=== PATIENT | female | born 1985 | race Caucasian/White ===

== ENCOUNTER → 2016-09-13 | Outpatient (CLI) | payer BC | LOC: LAB 09:27 | DX: L70.9 Acne, unspecified (principal) | CPT/HCPCS: 80076; 82465; 84478 ==

== ENCOUNTER → 2020-09-25 | Outpatient (CLI) | payer BC, OTHER ==
[~2020-09-25] MED LIST: DEBROX15 ML AU; ELIQUIS2.5 MG PO; IBUPROFEN800 MG PO; KEFLEX CAP 500500 MG PO; ZOFRAN4 MG PO
== END ==
LOC: EMI 16:29
DX: G43.709 Chronic migraine without aura, not intractable, without status migrainosus (principal); H53.9 Unspecified visual disturbance
CPT/HCPCS: 70551

== ENCOUNTER → 2021-04-24 | Outpatient (CLI) | payer BC ==
[2021-04-24 09:42] LABS: HEMOGLOBIN 12.3 gm/dl (12.3-15.3); RED BLOOD COUNT 4.4 M/UL (4.00-5.10); WHITE BLOOD COUNT 5.4 K/UL (4.5-11.0)
[2021-04-24 10:03] LABS: BUN/CREATININE RATIO 15 (0-10)
[2021-04-25 08:14] LABS: RHEUMATOID ARTHRITIS FACTOR <10.0 IU/mL (0.0-13.9); VITAMIN D, 25-HYDROXY 25.9 ng/mL (30.0-100.0)
== END ==
LOC: LAB 09:06
PROVIDERS: Nurse Practitioner Family
DX: E55.9 Vitamin D deficiency, unspecified (principal); D89.9 Disorder involving the immune mechanism, unspecified; M25.50 Pain in unspecified joint; R76.8 Other specified abnormal immunological findings in serum
CPT/HCPCS: 36415; 80053; 82728; 83520; 85025; 85652; 86140; 86200; 86431

== ENCOUNTER → 2021-05-26 | Outpatient (CLI) | payer BC | LOC: RAD 12:45 | DX: M79.675 Pain in left toe(s) (principal) | CPT/HCPCS: 73660 ==